=== PATIENT | female | born 1965 | race African-American/Black ===

== ENCOUNTER 2017-11-06 15:13 | Emergency (ER) | payer MEDICAID ==
[~2017-11-06] VITALS: Ht 170.2 cm; Wt 68.0 kg
[2017-11-06 15:50] VITALS: BP 141/81
[2017-11-06] MEDS: Ipratropium 0.02% Inh Soln 2.5ml UD HHN SCH ×2 (15:50→16:16)
[2017-11-06] MEDS: Albuterol ud Inhalation HHN SCH ×2 (15:50→16:16)
--- NOTE | 2017-11-06 16:30 | Emergency Room Report ---
History of Present Illness General Chief Complaint: Dyspnea/Respdistress Source: Patient, EMS Present Illness HPI 52-year-old female presents ED complaining of shortness of breath. History of asthma. Started today. States her inhaler did not help. Given breathing treatment by EMS and states she is feeling somewhat better. Denies any chest pain. Denies any fevers or chills. Denies cough. Admits to smoking. No other aggravating relieving factors. Denies any other associated symptoms Allergies: Coded Allergies: No Known Allergies (Unverified , 11/06/17) Patient History Past Medical History: asthma Past Surgical History: none Pertinent Family History: none Social History: Denies: smoking, alcohol use, drug use Last Menstrual Period: NA Now: No Immunizations: UTD Reviewed Nursing Documentation: PMH: Agreed; PSxH: Agreed Nursing Documentation-PMH Past Medical History: No History, Except For Hx Asthma: Yes Review of Systems All Other Systems: negative except mentioned in HPI Physical Exam Vital Signs Date Time Temp Pulse Resp B/P (MAP) Pulse Ox O2 Delivery O2 Flow Rate FiO2 11/06/17 15:08 98.1 104 20 141/81 99 Room Air 98.1 11/06/17 15:51 21 Sp02 EP Interpretation: reviewed, normal General Appearance: no apparent distress, alert, GCS 15, non-toxic Head: normocephalic Eyes: bilateral eye normal inspection, bilateral eye PERRL ENT: normal ENT inspection Neck: normal inspection Respiratory: decreased breath sounds, wheezing Cardiovascular #1: regular rate, rhythm, no edema Gastrointestinal: normal inspection Rectal: deferred Genitourinary: no CVA tenderness Musculoskeletal: normal inspection Neurologic: alert, oriented x3, responsive, motor strength/tone normal, sensory intact, speech normal Psychiatric: normal inspection Skin: normal inspection Lymphatic: normal inspection Medical Decision Making Diagnostic Impression: Primary Impression: Asthma exacerbation Qualified Codes: J45.901 - Unspecified asthma with (acute) exacerbation ER Course Hospital Course 52-year-old female presents to ED complaining of SOB, wheezing Differential diagnoses include: URI, bronchitis, asthma/COPD, pneumonia Clinical course Patient placed on stretcher. After initial history, physical exam reveals a middle aged female in no acute distress. Bilateral TM unremarkable. No pharyngeal erythema. No tonsillar exudates. No lymphadenopathy. Mild wheezing noted on exam, no signs of respiratory distress or retractions. Patient given Prednisone and albuterol/atrovent treatment in ED with symptoms improved. Reassurance given Diagnosis - asthma exacerbation Stable and discharged home with prescriptions for albuterol, prednisone, motrin. Instructed to followup with PMD. Return to ED if symptoms recur or worsen Last Vital Signs Date Time Temp Pulse Resp B/P (MAP) Pulse Ox O2 Delivery O2 Flow Rate FiO2 11/06/17 16:16 96 20 97 Room Air 21 11/06/17 15:50 98.1 141/81 98.1 Status: improved Disposition: HOME, SELF-CARE Condition: Stable Scripts Ibuprofen* (MOTRIN*) 600 Mg Tablet 600 MG ORAL Q8H PRN for For Pain, #30 TAB 0 Refills Prov: Joseph Spence MD 11/06/17 Prednisone* (PREDNISONE*) 20 Mg Tablet 40 MG ORAL DAILY, #10 TAB Prov: Joseph Spence MD 11/06/17 Albuterol Sulfate* (ALBUTEROL SULFATE MDI*) 8.5 Gm Hfa.aer.ad 2 PUFF INH Q6H, #1 EA 0 Refills Prov: Joseph Spence MD 11/06/17 Joseph Spence MD Nov 06, 2017 16:30
[2017-11-06] MEDS ORDERED: PREDNISONE20 MG ORAL (17:29)
[2017-11-06] MEDS ORDERED: IBUPROFEN600 MG ORAL (17:29)
[2017-11-06] MEDS ORDERED: ALBUTEROL SULF8.5 GM INH (17:29)
[2017-11-06 18:46] VITALS: BP 132/76
== END 2017-11-06 18:47 | disposition home or self-care (01) ==
LOC: EMR 18:31
DX: J45.901 Unspecified asthma with (acute) exacerbation (principal)
CPT/HCPCS: 94640; 94664; 99284; J7512